=== PATIENT | male | born 1975 | race Caucasian/White ===

== ENCOUNTER 2018-02-08 17:16 | Emergency (ER) | payer BC ==
[~2018-02-08] VITALS: Ht 182.9 cm; Wt 145.0 kg
[2018-02-08] MEDS ORDERED: ALBU8.5H8 INH (17:46)
[2018-02-08] MEDS ORDERED: AZIT-57 PO (17:46)
[2018-02-08] MEDS ORDERED: GUAI600T45 PO (17:46)
[2018-02-08] MEDS ORDERED: TAM75C PO (17:50)
[2018-02-08] MEDS ORDERED: normal saline 1000ml 1,000 ML IV ONE (18:05)
[2018-02-08 19:13] LABS: BASOPHILS % (AUTO) 0.4 % (0-1); EOSINOPHILS # (AUTO) 0.2 X10'3 (0-0.9); EOSINOPHILS % (AUTO) 3.8 % (0-6); HEMATOCRIT 44.4 % (42.0-52.0); HEMOGLOBIN 15.4 g/dl (14.0-17.9); LYMPHOCYTES % (AUTO) 16.6 % (21-51); MEAN CORPUSCULAR HEMOGLOBIN 29.4 PG (27.0-31.0); MEAN CORPUSCULAR HGB CONC 34.7 % (33.0-36.5); MEAN CORPUSCULAR VOLUME 84.7 FL (78-98); MEAN PLATELET VOLUME 8.8 FL (7.4-10.4); MONOCYTES # (AUTO) 0.6 X10'3 (0-0.9); MONOCYTES % (AUTO) 9.2 % (2-12); NEUTROPHILS # (AUTO) 4.3 X10'3 (1.8-7.7); PLATELET COUNT 192 X10'3 (140-440); RED BLOOD COUNT 5.24 X10'6 (4.70-6.10); RED CELL DISTRIBUTION WIDTH 13.2 % (11.5-14.5); WHITE BLOOD COUNT 6.2 X10'3 (4.5-11.0)
[2018-02-08 19:29] VITALS: BP 137/86
== END 2018-02-08 19:50 | disposition home or self-care (01) ==
LOC: ER 17:17
DX: J09.X2 Influenza due to identified novel influenza A virus with other respiratory manifestations (principal); I10 Essential (primary) hypertension; Z88.0 Allergy status to penicillin; Z79.899 Other long term (current) drug therapy
CPT/HCPCS: 36415; 71045; 85025; 87040; 87077; 87186; 87502; 87503; 93005; 99285; J7030